=== PATIENT | female | born 1970 | race Caucasian/White ===

== ENCOUNTER → 2020-02-02 10:21 | Outpatient (CLI) | payer BC, MEDICAID, SELFPAY ==
[2020-02-02 08:25] VITALS: BMI 34.3
== END ==
PROVIDERS: Referring Provider Physician Assistant Surgical; Visit Provider Physician Assistant Surgical
DX: Z20.828 Contact with and (suspected) exposure to other viral communicable diseases (principal)
CPT/HCPCS: 87635; U0003